=== PATIENT | female | born 1975 | race Caucasian/White ===

== ENCOUNTER 2019-08-26 12:55 | Emergency (ER) | payer BC ==
[2019-08-26] MEDS ORDERED: FENTANYL CITR 100 MCG/2 ML ONE ×2 (14:57→17:56)
[2019-08-26] MEDS ORDERED: ONDANSETRON 4 MG/2 ML VIAL ONE (14:57)
[2019-08-26 15:06] LABS: Absolute Lymphocytes (CBC) 1.4 K/uL (0.7-4.9); Basophils % 0.5 % (0-1.3); Hematocrit 40.1 % (36.0-45.0); Lymphocytes % 12.3 % (15.3-44.8); RBC Red Blood Cell Count 4.36 M/uL (3.86-4.86)
[2019-08-26 15:25] LABS: Urine Blood TRACE (NEG); Urine Glucose NEGATIVE (NEG); Urine Protein NEGATIVE (NEG); Urine Specific Gravity 1.025 (1.005-1.030); Urine pH 5.5 (5.0-7.0)
[2019-08-26 15:29] LABS: Urine Bacteria <20 /HPF (<20); Urine Culture Reflex Order NOT NEEDED; Urine Mucus 2+ /HPF (NONE SEEN)
[2019-08-26 15:35] LABS: Albumin 3.8 g/dL (3.4-5.0); Bilirubin Direct 0.1 mg/dL (0-0.2); Bilirubin Total 0.8 mg/dL (0.2-1.0); Protein, Total 7.7 g/dL (6.4-8.2)
[2019-08-26 15:36] LABS: Potassium 4.1 mmol/L (3.5-5.1)
--- NOTE | 2019-08-26 15:43 | RAD REPORT ---
EXAM DESCRIPTION: CT - Abdomen Pelvis W Contrast - 08/26/2019 3:18 pm CLINICAL HISTORY: ABD PAIN COMPARISON: No comparisons TECHNIQUE: Biphasic, helical CT imaging of the abdomen and pelvis was performed following 100 ml non -ionic IV contrast. Oral contrast was given. All CT scans are performed using dose optimization technique as appropriate and may include automated exposure control or mA/KV adjustment according to patient size. FINDINGS: No suspicious findings in the lung bases. Liver size is normal. In the subcapsular anterior right lobe near the gallbladder fossa a 14 millimet er oval hypoechoic focus is present. In the central anterior liver a 9 millimeter similar hypoechoic focus is present. Imaging characteristics are nonspecific. Neither mass show simple cyst characterist ics. Complex cyst or atypical hepatic adenoma may be possible. Neither lesion shows typical hemangiom a or focal nodular hyperplasia enhancement patterns. Benign etiologies are favored. There are no comp arisons that can establish stability. Elsewhere the hepatic parenchyma is unremarkable. No portal vei n abnormality. Pancreas and spleen show no suspicious findings. Gallbladder and biliary tree are also without suspic ious finding. Symmetric renal function is seen with no hydronephrosis or suspicious renal mass. No pyelonephritis o r acute parenchymal process. No bladder abnormalities. No adrenal abnormalities. No acute uterine finding. Left ovary and left adnexa are normal. No normal-appearing right ovary seen . In the right adnexa there is a complex 5 x 3.5 centimeter predominantly hypodense mass. A small live unt of free fluid is present in the cul de sac. The most common etiology would be a hemorrhagic ovari an cyst. The adnexal mass is somewhat tubular in structure. The oral lateral tubo-ovarian abscess wou ld be uncommon but is not excluded. No dilated bowel loops or bowel wall thickening. Appendix is normal. No free air or pneumatosis. No o ther area of stranding. No hernia, mass or bulky lymphadenopathy. No suspicious bony findings. IMPRESSION: A complex 5 x 3.5 centimeter right adnexal mass is present. Complex hemorrhagic ovarian cyst would be the most common etiology. The mass is somewhat tubular in shape an a dilated fallopian tube or unilateral tubo-ovarian abscess cannot be excluded. Correlation is needed with history and p hysical exam findings. Given the patient's age, a more aggressive ovarian process is not excluded but is less likely. Two small hypodense masses in the liver are probably of no long-term significance. Follow-up liver so nography or CT imaging in 4-6 months could be performed to monitor for stability.
--- NOTE | 2019-08-26 17:31 | RAD REPORT ---
EXAM DESCRIPTION: US - Transvaginal Study Probe - 08/26/2019 5:00 pm CLINICAL HISTORY: ovarian mass, abnormal CT study COMPARISON: No comparisons TECHNIQUE: Endovaginal sonography was performed. FINDINGS: Uterus, left ovary and left adnexa are well visualized and show no suspicious findings. No blood or fluid in the cul de sac. Right ovary was never identifiable on examination obscured by bowel. The complex masses CT was not id entifiable sonographically. IMPRESSION: Endovaginal pelvic sonography failed to identify the right ovary or complex right adnexa l mass detailed on the CT study. This is likely due to bowel in the region. The nonvisualization precludes any further characterization of the CT finding.
[2019-08-26 19:14] VITALS: TEMP 97.7
[2019-08-26 19:18] VITALS: O2SAT 100
[2019-08-26 19:19] VITALS: BP 98/54
--- NOTE | 2019-08-30 16:12 | ER ---
Nurse's Notes [facility] Name: Melba Pak Age: 44 yrs Sex: Female : 1975 Arrival Date: 08/26/2019 Time: 12:59 Bed 25 Private MD: Diagnosis: Other and unspecified ovarian cysts Presentation: 08/25 13:25 Chief complaint: Patient states: about three days ago had bad abs cramping and iw vomiting, still having abd cramping but no vomiting or diarrhea , pain concentrated mostly in RLQ, has pain when she sits. Coronavirus screen: Proceed with normal triage. Patient denies a cough. Patient denies shortness of breath or difficulty breathing. Patient denies measured and/or subjective temperature greater than 100.4F prior to today's visit. Patient denies travel on a cruise ship or to a country the [facility] currently lists as an affected area. Patient denies contact with known and/or suspected case of COVID-19. Ebola Screen: Patient negative for fever greater than or equal to 101.5 degrees Fahrenheit, and additional compatible Ebola Virus Disease symptoms Patient denies exposure to infectious person. Patient denies travel to an Ebola-affected area in the 21 days before illness onset. No symptoms or risks identified at this time. Initial Sepsis Screen: Does the patient meet any 2 criteria? No. Patient's initial sepsis screen is negative. Does the patient have a suspected source of infection? No. Patient's initial sepsis screen is negative. Risk Assessment: Do you want to hurt yourself or someone else? Patient reports no desire to harm self or others. Onset of symptoms was August 23, 2019. 13:25 Method Of Arrival: Ambulatory iw 13:25 Acuity: SVETLANA 3 iw MANAGEMENT ADVISOR: 13:28 LMP 08/14/2019 iw Historical: - Allergies: 13:28 [place]; iw - Home Meds: 13:28 None [Active]; iw - PMHx: 13:28 None; iw - PSHx: 13:28 S[employer]OL EX[employer]ER shunt for hydrocephalus; iw - Immunization history:: Adult Immunizations not up to date. - Social history:: Smoking status: Patient denies any tobacco usage or history of. Screenin:10 Abuse screen: Denies threats or abuse. Denies injuries from another. Nutritional iw screening: No deficits noted. Tuberculosis screening: No symptoms or risk factors identified. Fall Risk None identified. Assessment: 15:10 General: Appears in no apparent distress. Behavior is calm, cooperative. Pain: iw Complains of pain in right lower quadrant and left lower quadrant Pain currently is 6 out of 10 on a pain scale. Neuro: Level of Consciousness is awake, alert, obeys commands, Oriented to person, place, time, situation, Moves all extremities. Full function. Cardiovascular: Patient's skin is warm and dry. Respiratory: Respiratory effort is even, unlabored, Respiratory pattern is regular, symmetrical. GI: Bowel sounds present X 4 quads. Abd is soft X 4 quads Abdomen is tender to palpation in right lower quadrant. Derm: Skin is intact, is healthy with good turgor. Musculoskeletal: Range of motion: intact in all extremities. 15:30 Reassessment: Patient appears in no apparent distress at this time. Patient and/or iw family updated on plan of care and expected duration. Pain level reassessed. Patient is alert, oriented x 3, equal unlabored respirations, skin warm/dry/pink. pt medicated for pain, awaiting CT results. 17:28 Reassessment: Patient appears in no apparent distress at this time. Patient and/or iw family updated on plan of care and expected duration. Pain level reassessed. Patient is alert, oriented x 3, equal unlabored respirations, skin warm/dry/pink. 17:45 Reassessment: Patient appears in no apparent distress at this time. pt requesting more iw pain medication, Milan Herrera notified, new orders given, awaiting US results. Vital Signs: 13:25 BP 124 / 61; Pulse 94; Resp 16 S; Temp 97.7; Pulse Ox 99% on R/A; Weight 54.43 kg; iw Height 4 ft. 11 in. (149.86 cm); Pain 8/10; 15:30 BP 123 / 89; Pulse 94; Resp 16; Pulse Ox 98% on R/A; iw 16:28 BP 105 / 65; Pulse 84; Resp 16; Pulse Ox 99% on R/A; iw 17:07 BP 103 / 67 LA Sitting (auto/reg); Pulse 82 LA; Pulse Ox 100% on R/A; mb4 18:31 BP 98 / 54 LA Supine (auto/reg); Pulse 84 LA; Pulse Ox 100% on R/A; mb4 13:25 Body Mass Index 24.24 (54.43 kg, 149.86 cm) iw ED Course: 12:59 Patient arrived in ED. mr 13:27 Triage completed. iw 13:28 Arm band placed on. iw 14:19 Lenny Davidson PA is PHCP. jr8 14:19 Abhishek Tellez MD is Attending Physician. jr8 14:46 Olga Mercedes, RN is Primary Nurse. iw 15:00 Inserted saline lock: 22 gauge in right antecubital area, using aseptic technique. IV iw inserted by MICHELLE Khan. 15:10 Patient has correct armband on for positive identification. iw 15:18 CT Abd/Pelvis - PO and IV Contrast In Process Unspecified. EDMS 16:20 PHCP role handed off by Lenny Davidson PA jmm 16:20 Javier Rodríguez PA is PHCP. jmm 17:02 US Transvaginal Study (Probe) In Process Unspecified. EDMS 17:07 Pulse ox on. NIBP on. mb4 18:15 Assist provider with pelvic exam: Performed by Javier VAZQUEZ Patient tolerated well. mb4 19:00 IV discontinued, intact, bleeding controlled, No redness/swelling at site. Pressure iw dressing applied. Administered Medications: 15:28 Drug: fentaNYL (PF) 50 mcg Route: IVP; Site: right antecubital; iw 17:57 Follow up: Response: No adverse reaction iw 15:29 Drug: Zofran (Ondansetron) 4 mg Route: IVP; Site: right antecubital; iw 17:58 Follow up: Response: No adverse reaction iw 17:53 Drug: fentaNYL (PF) 50 mcg Route: IVP; Site: right antecubital; iw 19:04 Follow up: Response: No adverse reaction iw Outcome: 18:54 Discharge ordered by . quang 19:00 Discharged to home ambulatory. iw 19:00 Condition: good 19:00 Discharge instructions given to patient, Instructed on discharge instructions, follow up and referral plans. medication usage, Demonstrated understanding of instructions, follow-up care, medications, Prescriptions given X 2. 19:01 Patient left the ED. iw Signatures: Dispatcher [employer] EDMS Javier Rodríguez PA PA jmm Rivera, Mary Faby Mercedesne, RN RN Lenny Bianchi PA PA jr8 Sheri Farias mb4
--- NOTE | 2019-08-30 16:12 | EDPHYS ---
Physician Documentation [facility] Name: Melba Pak Age: 44 yrs Sex: Female : 1975 Arrival Date: 08/26/2019 Time: 12:59 Bed 25 Private MD: ED Physician Abhishek Tellez HPI: 08/25 14:42 This 44 yrs old Female presents to ER via Ambulatory with complaints of jr8 Abdominal Cramping, Vomiting. 14:43 The patient presents with abdominal pain right lower quadrant. Onset: The jr8 symptoms/episode began/occurred acutely, today. The symptoms do not radiate. Associated signs and symptoms: Pertinent positives: nausea. The symptoms are described as crampy. Modifying factors: The symptoms are alleviated by nothing, the symptoms are aggravated by movement. Severity of pain: At its worst the pain was moderate in the emergency department the pain is unchanged. The patient has not experienced similar symptoms in the past. The patient has not recently seen a physician. 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 - Social history:: Smoking status: Patient denies any tobacco usage or history of. ROS: 14:43 Eyes: Negative for injury, pain, redness, and discharge, ENT: Negative for injury, jr8 pain, and discharge, Neck: Negative for injury, pain, and swelling, Cardiovascular: Negative for chest pain, palpitations, and edema, Respiratory: Negative for shortness of breath, cough, wheezing, and pleuritic chest pain, Back: Negative for injury and pain, MS/Extremity: Negative for injury and deformity, Skin: Negative for injury, rash, and discoloration, Neuro: Negative for headache, weakness, numbness, tingling, and seizure. 14:43 Abdomen/GI: Positive for abdominal pain, nausea, abdominal cramps, Negative for diarrhea, constipation, abdominal distension, anorexia, dysphagia, hematemesis, black/tarry stool, rectal pain, rectal bleeding, bowel incontinence, flatulence. Exam: 14:43 Eyes: Pupils equal round and reactive to light, extra-ocular motions intact. Lids and jr8 lashes normal. Conjunctiva and sclera are non-icteric and not injected. Cornea within normal limits. Periorbital areas with no swelling, redness, or edema. ENT: Nares patent. No nasal discharge, no septal abnormalities noted. Tympanic membranes are normal and external auditory canals are clear. Oropharynx with no redness, swelling, or masses, exudates, or evidence of obstruction, uvula midline. Mucous membranes moist. Neck: Trachea midline, no thyromegaly or masses palpated, and no cervical lymphadenopathy. Supple, full range of motion without nuchal rigidity, or vertebral point tenderness. No Meningismus. Cardiovascular: Regular rate and rhythm with a normal S1 and S2. No gallops, murmurs, or rubs. Normal PMI, no JVD. No pulse deficits. Respiratory: Lungs have equal breath sounds bilaterally, clear to auscultation and percussion. No rales, rhonchi or wheezes noted. No increased work of breathing, no retractions or nasal flaring. Back: No spinal tenderness. No costovertebral tenderness. Full range of motion. Skin: Warm, dry with normal turgor. Normal color with no rashes, no lesions, and no evidence of cellulitis. MS/ Extremity: Pulses equal, no cyanosis. Neurovascular intact. Full, normal range of motion. Neuro: Awake and alert, GCS 15, oriented to person, place, time, and situation. Cranial nerves II-XII grossly intact. Motor strength 5/5 in all extremities. Sensory grossly intact. Cerebellar exam normal. Normal gait. 14:43 Abdomen/GI: Inspection: abdomen appears normal, Bowel sounds: active, all quadrants, Palpation: soft, in all quadrants, moderate abdominal tenderness, in the right lower quadrant, mass, is not appreciated, rebound tenderness, is appreciated in the right lower quadrant, voluntary guarding, is not appreciated, involuntary guarding, is not appreciated, no appreciated organomegaly, Indicators: McBurney's point is tender, Frances's sign is negative, Rovsing's sign is negative, Obturator sign is negative, Psoas sign is negative, Liver: tenderness, is not appreciated. Vital Signs: 13:25 BP 124 / 61; Pulse 94; Resp 16 S; Temp 97.7; Pulse Ox 99% on R/A; Weight 54.43 kg; iw Height 4 ft. 11 in. (149.86 cm); Pain 8/10; 15:30 BP 123 / 89; Pulse 94; Resp 16; Pulse Ox 98% on R/A; iw 16:28 BP 105 / 65; Pulse 84; Resp 16; Pulse Ox 99% on R/A; iw 17:07 BP 103 / 67 LA Sitting (auto/reg); Pulse 82 LA; Pulse Ox 100% on R/A; mb4 18:31 BP 98 / 54 LA Supine (auto/reg); Pulse 84 LA; Pulse Ox 100% on R/A; mb4 13:25 Body Mass Index 24.24 (54.43 kg, 149.86 cm) iw MDM: 14:20 Patient medically screened. jr8 18:53 Data reviewed: vital signs, nurses notes. Counseling: I had a detailed discussion with quang the patient and/or guardian regarding: the historical points, exam findings, and any diagnostic results supporting the discharge/admit diagnosis, lab results, radiology results, the need for outpatient follow up, to return to the emergency department if symptoms worsen or persist or if there are any questions or concerns that arise at home. ED course: US unable to differentiate CT findings. No appendicitis. I performed a pelvic exam. No CMT, No adnexal tenderness, patient denies abnormal discharge. Denies fever. I do not currently suspect TOA. Patient is advised to follow up with nurse gynecology and given strict return precautions. Patient understood and agrees with the plan of care. . 08/25 14:20 Order name: Basic Metabolic Panel; Complete Time: 15:44 [facility] 08/25 14:20 Order name: CBC with Diff; Complete Time: 15:44 [facility] 08/25 14:20 Order name: Hepatic Function; Complete Time: 15:44 [facility] 08/25 14:20 Order name: Lipase; Complete Time: 15:44 [facility] 08/25 14:20 Order name: Urine Microscopic Only; Complete Time: 15:44 [facility] 08/25 14:55 Order name: Urine Dipstick--Ancillary (enter results); Complete Time: 15:44 08/25 14:20 Order name: IV Saline Lock; Complete Time: 15:08 [facility] 08/25 14:37 Order name: CT Abd/Pelvis - PO and IV Contrast; Complete Time: 16:00 [facility] 08/25 14:55 Order name: Urine --Ancillary (enter results); Complete Time: 15:44 bd 08/25 16:04 Order name: CREATININE WHOLE BLOOD; Complete Time: 16:07 EDMS 08/25 16:07 Order name: US Transvaginal Study (Probe); Complete Time: 17:50 [facility] 08/25 14:20 Order name: Labs collected and sent; Complete Time: 15:08 [facility] 08/25 14:20 Order name: Urine Test (obtain specimen); Complete Time: 15:08 [facility] 08/25 14:20 Order name: Urine Dipstick-Ancillary (obtain specimen); Complete Time: 15:08 [facility] 08/25 17:57 Order name: Pelvic Exam Setup; Complete Time: 18:11 [facility] Administered Medications: 15:28 Drug: fentaNYL (PF) 50 mcg Route: IVP; Site: right antecubital; iw 17:57 Follow up: Response: No adverse reaction iw 15:29 Drug: Zofran (Ondansetron) 4 mg Route: IVP; Site: right antecubital; iw 17:58 Follow up: Response: No adverse reaction iw 17:53 Drug: fentaNYL (PF) 50 mcg Route: IVP; Site: right antecubital; iw 19:04 Follow up: Response: No adverse reaction iw Disposition: 08/26/19 18:54 Discharged to Home. Impression: Other and unspecified ovarian cysts. - Condition is Stable. - Discharge Instructions: Ovarian Cyst. - Prescriptions for Zofran ODT 4 mg Oral tablet,disintegrating - place 1 tablet by TRANSLINGUAL route every 4-6 hours; 20 tablet. Ibuprofen 800 mg Oral Tablet - take 1 tablet by ORAL route every 12 hours As needed take with food; 20 tablet. - Medication Reconciliation Form, Thank You Letter, Antibiotic Education, Prescription Opioid Use, Work release form form. - Follow up: Private Physician; When: 2 - 3 days; Reason: Recheck today's complaints, Continuance of care, Re-evaluation by your physician. Addendum: 08/28/2019 07:57 Co-signature as Attending Physician, Abhishek Tellez MD I agree with the assessment and k plan of care. 07:57 Co-signature as Attending Physician, Abhishek Tellez MD I agree with the assessment and k dr plan of care. Signatures: Dispatcher [employer] Abhishek Varela MD MD kdr Mickail, Joel, PA PA jmm Williams, Irene, MARLEN RN iw Lenny Davidson PA PA jr8 Corrections: (The following items were deleted from the chart) 08/25 19:01 18:54 08/26/2019 18:54 Discharged to Home. Impression: Other and unspecified ovarian iw cysts. Condition is Stable. Forms are Work release form, Medication Reconciliation Form, Thank You Letter, Antibiotic Education, Prescription Opioid Use. Follow up: Private Physician; When: 2 - 3 days; Reason: Recheck today's complaints, Continuance of care, Re-evaluation by your physician. quang
== END 2019-08-26 19:01 | disposition home or self-care (01) ==
LOC: ER 12:55
DX: N83.299 Other ovarian cyst, unspecified side (principal); Z88.5 Allergy status to narcotic agent
CPT/HCPCS: 85025; 80048; 36415; 81025; 82565; 80076; 83690; 74177; 76830; 96375; 96374; 99284; Q9967; J3010 ×2; J2405; 81003; 81015